=== PATIENT | female | born 1980 | race Caucasian/White ===

== ENCOUNTER → 2021-06-16 13:52 | Outpatient (BNVA) | payer OTHER, SELFPAY | PROVIDERS: Visit Provider Nurse Practitioner | DX: N39.0 Urinary tract infection, site not specified (principal); R30.0 Dysuria | CPT/HCPCS: 81000; 87086 ==

== ENCOUNTER 2021-08-30 12:06 | Outpatient (CLI) | payer OTHER, SELFPAY ==
--- NOTE | 2021-08-30 | XR_ITS ---
WS: [id number] Right foot, 3 views, 08/30/2021. Clinical Data: TOE PAIN RIGHT Comparison: None. Findings: No fractures or dislocations are seen. No bone destruction or erosion is noted. The joint spaces and soft tissues are normal. XR/XR foot RT min 3V* [id number] Impression: Negative right foot.
== END 2021-08-30 12:07 | disposition home or self-care (01) ==
LOC: RADOUTREAD 09-03 12:10
PROVIDERS: Visit Provider Nurse Practitioner Family
DX: M79.674 Pain in right toe(s) (principal)
CPT/HCPCS: 73630